=== PATIENT | male | born 1980 | race Caucasian/White ===

== ENCOUNTER 2016-04-20 09:21 | Observation (INO) ==
[2016-04-20 10:12] LABS: Basophils # 0.1 K/mcL (0.0-0.2); Basophils % 0.5 %; Eosinophils % 0.2 %; Hematocrit 36.5 % (37.5-50.1); Hemoglobin 11.6 g/dL (12.9-16.9); Immature Granulocytes % 1.2 % (0-4); Lymphocytes % 9.2 %; Mean Corpuscular HGB Conc 31.8 g/dL (31.6-35.5); Mean Corpuscular Hemoglobin 25.9 pg (28.0-33.3); Mean Corpuscular Volume 81.5 fL (83.0-100.0); Mean Platelet Volume 10.8 fL (9.4-12.4); Monocytes # 0.4 K/mcL (0.0-1.3); Monocytes % 3.7 %; Neutrophils # 9.2 K/mcL (1.6-8.9); Platelet Count 261 K/mcL (140-400); Red Blood Count 4.48 M/mcL (4.19-5.50); Red Cell Distribution Width 15.8 % (11.5-14.5); Segmented Neutrophils % 85.2 %
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
[2016-04-20 10:24] LABS: BUN/Creatinine Ratio 11 (6-26); Blood Urea Nitrogen 10 mg/dL (8-26); Calcium 9.4 mg/dL (8.6-10.8); Carbon Dioxide 24 mEq/L (19-29); Chloride 102 mEq/L (98-109); Glucose 138 mg/dL (70-99); Osmolality,Calculated 283 (280-300); Potassium 3.8 mEq/L (3.5-4.5); Sodium 136 mEq/L (136-145); eGFR For African Americans > 60 (> 60); eGFR For Non-African Americans > 60 (> 60)
[2016-04-20] MEDS ORDERED: Vancomycin 2,000 MG in D5% in Water 500 ML IVPB ONE (10:46)
[2016-04-20] MEDS ORDERED: Piperacillin/Tazobactam 3.375 GM in D5% in Water (Mini-Bag+) 100 ML IVPB ONE (10:46)
[2016-04-20] MEDS ORDERED: Ibuprofen 400 MG TABLET PO ONE (12:31)
[2016-04-20] MEDS ORDERED: traMADol 50 MG TABLET PO ONE (15:36)
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
[2016-04-20] MEDS ORDERED: Naloxone 0.4 MG/ML INJ IVP PRN (17:47)
[2016-04-20] MEDS ORDERED: traMADol 50 MG TABLET PO PRN (17:48)
[2016-04-20] MEDS ORDERED: *HR* Morphine 2 MG/ML SYRINGE IVP PRN (17:49)
[2016-04-20] MEDS: Propranolol LA (24 HR) 80 MG CAP.SA.24H PO SCH (18:02)
[2016-04-20] MEDS: Piperacillin/Tazobactam 3.375 GM in D5% in Water (Mini-Bag+) 100 ML IVPB SCH (18:30)
[2016-04-20] MEDS: Ibuprofen 400 MG TABLET PO PRN (20:50)
[2016-04-20] MEDS: Ondansetron 4 MG/2 ML VIAL IVP PRN (20:50)
[2016-04-20] MEDS: Famotidine 20 MG TABLET PO SCH (20:50)
[2016-04-20] MEDS: Vancomycin 2,000 MG in D5% in Water 500 ML IVPB SCH (23:25)
[2016-04-21] MEDS: Piperacillin/Tazobactam 3.375 GM in D5% in Water (Mini-Bag+) 100 ML IVPB SCH ×3 (03:09→18:27)
[2016-04-21] MEDS: Ibuprofen 400 MG TABLET PO PRN ×2 (04:42→14:57)
[2016-04-21 05:15] LABS: Basophils % 0.5 %; Eosinophils # 0.1 K/mcL (0.0-0.6); Eosinophils % 1.4 %; Hematocrit 35.1 % (37.5-50.1); Hemoglobin 10.8 g/dL (12.9-16.9); Immature Granulocytes % 0.6 % (0-4); Lymphocytes # 0.7 K/mcL (0.6-4.6); Lymphocytes % 10.5 %; Mean Corpuscular HGB Conc 30.8 g/dL (31.6-35.5); Mean Corpuscular Hemoglobin 25.3 pg (28.0-33.3); Mean Corpuscular Volume 82.2 fL (83.0-100.0); Mean Platelet Volume 10.7 fL (9.4-12.4); Monocytes # 0.6 K/mcL (0.0-1.3); Monocytes % 8.8 %; Neutrophils # 5.1 K/mcL (1.6-8.9); Platelet Count 229 K/mcL (140-400); Red Blood Count 4.27 M/mcL (4.19-5.50); Red Cell Distribution Width 16.1 % (11.5-14.5); Segmented Neutrophils % 78.2 %
[2016-04-21 05:35] LABS: BUN/Creatinine Ratio 11 (6-26); Blood Urea Nitrogen 9 mg/dL (8-26); Calcium 8.8 mg/dL (8.6-10.8); Carbon Dioxide 23 mEq/L (19-29); Chloride 104 mEq/L (98-109); Glucose 125 mg/dL (70-99); Osmolality,Calculated 284 (280-300); Sodium 137 mEq/L (136-145); eGFR For African Americans > 60 (> 60); eGFR For Non-African Americans > 60 (> 60)
[2016-04-21] MEDS ORDERED: *HR* Enoxaparin 40 MG/0.4 ML SYRINGE SQ SCH (07:00)
[2016-04-21] MEDS: Famotidine 20 MG TABLET PO SCH ×2 (09:05→20:10)
[2016-04-21] MEDS: TESTOSTERONE APPL TD SCH (09:05)
[2016-04-21] MEDS: Furosemide 40 MG TABLET PO SCH (11:12)
[2016-04-21] MEDS: Vancomycin 2,000 MG in D5% in Water 500 ML IVPB SCH (15:11)
--- NOTE | 2016-04-21 16:02 | Internal Med Progress Note ---
Date of Encounter: 04/21/16 Time of Encounter: 15:59 - Assessment and plan (1) Cellulitis Current Visit: Yes Status: Acute Assessment and plan: rt. lower leg cellulitis, MRI negative for osteomyelitis. will continue vanco and zosyn, not able to get blood cx this morning. spike today 100.8 re attempt to draw blood cx. h/o osteo in the past and recurrent cellulitis. 2/2 chronic lymphedema. have restarted anne lasix that he takes prn at home. will continue supportive tx with analgesics and zofran. leg elevation on bed, no weight bearing or dangling of legs. Qualifiers: Site of cellulitis: extremity Site of cellulitis of extremity: lower extremity Laterality: right Qualified Code(s): L03.115 - Cellulitis of right lower limb - Time Spent With Patient 25 - 35 minutes - Subjective Interval history: seen at the bedside, c/o mild pain which worsens if anne legs are dangled or if tried weightbearing. no fever spike last night, denies nausea or vomiting. mild improvement than yesterday , however has significant redness and swelling . - Constitutional Vitals: Temp Pulse Resp BP Pulse Ox 100.4 F H 84 18 134/63 99 04/21/16 14:53 04/21/16 14:53 04/21/16 14:53 04/21/16 14:53 04/21/16 14:53 General appearance: Present: A&O X 3, no acute distress Exam: neck- supple chest- b/l clear, no added sounds CVS-s1 and s2,no mr/g abd-soft,non tender, bs are present ext- rt. lower leg swelling and tender, peripheral pulses palpable, sensation intact, no signs of compartment syndrome. mild improvement in the demarcation of the cellulitis Internal Medicine: Result - Labs CBC & Chem 7: 04/21/16 04:37 04/21/16 04:37 Labs: Short CBC 04/21/16 Range/Units 04:37 WBC 6.5 (4.3-11.1) K/mcL Hgb 10.8 L (12.9-16.9) g/dL Hct 35.1 L (37.5-50.1) % Plt Count 229 (140-400) K/mcL Neutrophils # 5.1 (1.6-8.9) K/mcL [facility] 04/21/16 04:37 Sodium 137 Potassium 4.0 Chloride 104 Carbon Dioxide 23 BUN 9 Creatinine 0.84 Glucose 125 H Calcium 8.8 Consult Discharge Plan - Plan Referrals: Sapphire Mariee, RAG CUTTING MACHINE TENDER [Primary Care Provider] -
[2016-04-21] MEDS: Propranolol LA (24 HR) 80 MG CAP.SA.24H PO SCH (18:26)
[2016-04-22] MEDS: Vancomycin 2,000 MG in D5% in Water 500 ML IVPB SCH (00:23)
[2016-04-22] MEDS: Ibuprofen 400 MG TABLET PO PRN ×3 (00:32→17:27)
[2016-04-22] MEDS: Piperacillin/Tazobactam 3.375 GM in D5% in Water (Mini-Bag+) 100 ML IVPB SCH ×3 (02:53→19:36)
[2016-04-22] MEDS ORDERED: *HR* Enoxaparin 100 MG/ML SYRINGE SQ SCH (07:00)
[2016-04-22 09:05] LABS: Basophils % 0.5 %; Eosinophils # 0.2 K/mcL (0.0-0.6); Eosinophils % 2.3 %; Hemoglobin 10.8 g/dL (12.9-16.9); Immature Granulocytes % 1.6 % (0-4); Mean Corpuscular HGB Conc 30.9 g/dL (31.6-35.5); Mean Corpuscular Hemoglobin 25.5 pg (28.0-33.3); Mean Corpuscular Volume 82.5 fL (83.0-100.0); Mean Platelet Volume 10.8 fL (9.4-12.4); Monocytes # 0.8 K/mcL (0.0-1.3); Neutrophils # 5.8 K/mcL (1.6-8.9); Platelet Count 281 K/mcL (140-400); Red Blood Count 4.24 M/mcL (4.19-5.50); Segmented Neutrophils % 73.6 %
[2016-04-22] MEDS: Furosemide 40 MG TABLET PO SCH (09:07)
[2016-04-22] MEDS: Famotidine 20 MG TABLET PO SCH ×2 (09:08→21:09)
[2016-04-22 09:10] LABS: BUN/Creatinine Ratio 11 (6-26); Blood Urea Nitrogen 11 mg/dL (8-26); Calcium 9.5 mg/dL (8.6-10.8); Carbon Dioxide 25 mEq/L (19-29); Chloride 103 mEq/L (98-109); Glucose 121 mg/dL (70-99); Osmolality,Calculated 289 (280-300); Sodium 139 mEq/L (136-145); eGFR For African Americans > 60 (> 60); eGFR For Non-African Americans > 60 (> 60)
[2016-04-22] MEDS: Vancomycin 1,500 MG in D5% in Water 250 ML IVPB SCH (12:16)
--- NOTE | 2016-04-22 12:36 | Internal Med Progress Note ---
Date of Encounter: 04/22/16 Time of Encounter: 12:34 - Assessment and plan (1) Cellulitis Current Visit: Yes Status: Acute Assessment and plan: rt. lower leg cellulitis, MRI negative for osteomyelitis. will continue vanco and zosyn, will follow blood culture results. no fever spike today. Status post gallbladder, right leg which is negative for DVT. h/o osteo in the past and recurrent cellulitis. 2/2 chronic lymphedema. have restarted anne lasix that he takes prn at home. will continue supportive tx with analgesics and zofran. leg elevation on bed, no weight bearing or dangling of legs. Qualifiers: Site of cellulitis: extremity Site of cellulitis of extremity: lower extremity Laterality: right Qualified Code(s): L03.115 - Cellulitis of right lower limb - Time Spent With Patient 25 - 35 minutes - Subjective Interval history: seen at the bedside, c/o mild pain which worsens if anne legs are dangled or if tried weightbearing. no fever spike now, mild imrpovement in the cellulitis but there is persistent swelling. Denies any nausea or vomiting. - Constitutional Vitals: Temp Pulse Resp BP Pulse Ox 97.6 F 80 16 152/69 96 04/22/16 11:24 04/22/16 11:24 04/22/16 11:24 04/22/16 11:24 04/22/16 11:24 General appearance: Present: A&O X 3, no acute distress Exam: neck- supple chest- b/l clear, no added sounds CVS-s1 and s2,no mr/g abd-soft,non tender, bs are present ext- rt. lower leg swelling and tender, peripheral pulses palpable, sensation intact, no signs of compartment syndrome. mild improvement in the demarcation of the cellulitis Internal Medicine: Result - Labs CBC & Chem 7: 04/22/16 08:38 04/22/16 08:38 Labs: Short CBC 04/22/16 Range/Units 08:38 WBC 7.9 (4.3-11.1) K/mcL Hgb 10.8 L (12.9-16.9) g/dL Hct 35.0 L (37.5-50.1) % Plt Count 281 (140-400) K/mcL Neutrophils # 5.8 (1.6-8.9) K/mcL [facility] 04/22/16 08:38 Sodium 139 Potassium 4.0 Chloride 103 Carbon Dioxide 25 BUN 11 Creatinine 1.01 Glucose 121 H Calcium 9.5 Consult Discharge Plan - Plan Referrals: Sapphire Mariee, MACHINE ADJUSTER LEADER [Primary Care Provider] -
[2016-04-22] MEDS: TESTOSTERONE APPL TD SCH (17:14)
[2016-04-22] MEDS: Ondansetron 4 MG/2 ML VIAL IVP PRN (17:27)
[2016-04-22] MEDS: Propranolol LA (24 HR) 80 MG CAP.SA.24H PO SCH (17:36)
[2016-04-22] MEDS ORDERED: 0.9 % Sodium Chloride 1,000 ML IVC SCH (22:15)
--- NOTE | 2016-04-22 22:15 | Event Note ---
Date of Encounter: 04/22/16 Time of Encounter: 21:00 Called to see pt for complaints of worsening pain, redness, and warmth to RLE - - particularly to right pretibial area. I don't appreciate any fluctuance or abscess on exam. However, per pt and RN report, pt has failed to improve on IV antibiotics presently. Pt has normal sensation to his leg and foot and has palpable pulses. Will order CT of RLE to rule out abscess. Will also repeat ESR in am.
[2016-04-23] MEDS: Vancomycin 1,500 MG in D5% in Water 250 ML IVPB SCH (00:23)
[2016-04-23] MEDS: Ibuprofen 400 MG TABLET PO PRN (01:36)
[2016-04-23] MEDS: Piperacillin/Tazobactam 3.375 GM in D5% in Water (Mini-Bag+) 100 ML IVPB SCH (03:11)
[2016-04-23 06:42] VITALS: BP 131/73
[2016-04-23] MEDS ORDERED: *HR* Enoxaparin 40 MG/0.4 ML SYRINGE SQ SCH (07:00)
[2016-04-23 07:29] LABS: Basophils # 0.1 K/mcL (0.0-0.2); Basophils % 0.5 %; Eosinophils # 0.3 K/mcL (0.0-0.6); Eosinophils % 2.6 %; Hemoglobin 10.2 g/dL (12.9-16.9); Immature Granulocytes % 2.2 % (0-4); Lymphocytes # 0.8 K/mcL (0.6-4.6); Lymphocytes % 8.3 %; Mean Corpuscular HGB Conc 30.9 g/dL (31.6-35.5); Mean Corpuscular Hemoglobin 25.6 pg (28.0-33.3); Mean Corpuscular Volume 82.7 fL (83.0-100.0); Mean Platelet Volume 10.6 fL (9.4-12.4); Monocytes % 9.6 %; Neutrophils # 7.8 K/mcL (1.6-8.9); Platelet Count 275 K/mcL (140-400); Red Blood Count 3.99 M/mcL (4.19-5.50); Segmented Neutrophils % 76.8 %
[2016-04-23 07:42] LABS: BUN/Creatinine Ratio 10 (6-26); Blood Urea Nitrogen 12 mg/dL (8-26); Calcium 9.4 mg/dL (8.6-10.8); Carbon Dioxide 25 mEq/L (19-29); Chloride 104 mEq/L (98-109); Glucose 147 mg/dL (70-99); Osmolality,Calculated 294 (280-300); Sodium 141 mEq/L (136-145); eGFR For African Americans > 60 (> 60); eGFR For Non-African Americans > 60 (> 60)
[2016-04-23] MEDS: Famotidine 20 MG TABLET PO SCH (08:03)
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
[2016-04-23] MEDS: TESTOSTERONE APPL TD SCH (10:05)
[2016-04-23] MEDS ORDERED: Aminoglycoside Consult 1 EACH MC ONE (10:39)
[2016-04-23] MEDS ORDERED: Furosemide 40 MG/4 ML VIAL IVP SCH (11:00)
--- NOTE | 2016-04-24 06:43 | Venous Imaging Report ---
LE Venous Duplex Patient Name:Delmar Myres Order Number:[id number] Procedure Date:04/22/2016 Date:1980Age:35 yrs Gender:Male Location:[facility] Room #: 3A42 Product Design Manager:Selena Mathews RVT, MARY LOU Referring MD:Mikey Quevedo MD industry analyst:Sapphire Mariee, INSIDE SALES ASSISTANT Reading MD:Jamey Castro MD Primary Indications:RLE edema Secondary Indications: Risk Factors Yes/No Hx of DVT No Impressions: Normal bilateral lower extremity deep and superficial venous exam. Recommendations: Test completed on 04/22/2016 at 10:04:44 am. Critical findings reported to Erica GR in person at 10:04:53 am on 04/22/2016 by Selena Mathews RVT, RDCS. Findings Venous Duplex Results: Right: Venous imaging of the lower extremity reveals full patency and normal vessel compressibility of the right distal iliac, right common femoral, right superficial femoral, right popliteal, right posterior tibial, right peroneal, right saphenofemoral junction, right great saphenous, right great saphenous above knee, right great saphenous below knee and right lesser saphenous. Doppler signals in the evaluated veins were normal. Left: Venous imaging of the lower extremity reveals full patency and normal vessel compressibility of the left distal iliac, left common femoral, left superficial femoral, left popliteal, left posterior tibial, left peroneal, left saphenofemoral junction, left great saphenous, left great saphenous above knee, left great saphenous below knee and left lesser saphenous. Doppler signals in the evaluated veins were normal. Lower Extremity Venous Duplex Side Vein Compress Spontaneous Flow Augment Diameter (cm) Depth (cm) Right Distal Iliac Normal Yes Phasic Yes Right Common Femoral Normal Yes Phasic Yes Right Superficial Femoral Normal Yes Phasic Yes Right Popliteal Normal Yes Phasic Yes Right Posterior Tibial Normal Yes Phasic Yes Right Peroneal Normal Yes Phasic Yes Right Saphenofemoral [place] Normal Yes Phasic Yes Right Great Saphenous Normal Yes Phasic Yes Right Great Saphenous [place] Normal Yes Phasic Yes Right Great Saphenous BK Normal Yes Phasic Yes Right Lesser Saphenous Normal Yes Phasic Yes Left Distal Iliac Normal Yes Phasic Yes Left Common Femoral Normal Yes Phasic Yes Left Superficial Femoral Normal Yes Phasic Yes Left Popliteal Normal Yes Phasic Yes Left Posterior Tibial Normal Yes Phasic Yes Left Peroneal Normal Yes Phasic Yes Left Saphenofemoral [place] Normal Yes Phasic Yes Left Great Saphenous Normal Yes Phasic Yes Left Great Saphenous [place] Normal Yes Phasic Yes Left Great Saphenous BK Normal Yes Phasic Yes Left Lesser Saphenous Normal Yes Phasic Yes Updated by Jamey Castro MD on 04/24/2016 6:39:45 AM electronically signed on 04/24/2016 6:39:56 AM with status of Final
--- NOTE | 2016-04-24 17:26 | Electrocardiograph Report ---
[facility] Test Date: 2016-04-22 Pat Name: Delmar Myers Department: 115 Room: 3A42 Gender: M Optometric Aide: [id number] : 1980 Requested By: Mikey Quevedo Order Number: [id number] Reading MD: Yohan Babin DO Measurements Intervals [place] Rate: 83 P: 43 [place]: 208 QRS: 11 QRSD: 105 T: 8 QT: 340 QTc: 380 Interpretive Statements Sinus rhythm Electronically Signed On 04-24-16 17:25:37 EST by Yohan Babin DO
== END 2016-04-23 10:40 | disposition home or self-care (01) ==
LOC: 3ANU 09:21 → EMEROO 09:21 → SUATTDRO 16:27 → 3ANU 17:09
PROVIDERS: ADMIT Internal Medicine; ATTEND Internal Medicine Endocrinology, Diabetes & Metabolism